=== PATIENT | female | born 1990 | race Caucasian/White ===

== ENCOUNTER 2017-04-11 19:48 | Emergency (ER) | payer BC ==
[2017-04-11] MEDS: CEPHALEXIN 500 MG CAP PO (22:30)
[2017-04-11] MEDS: traMADol 50 MG TAB PO (22:30)
== END 2017-04-11 22:37 | disposition home or self-care (01) ==
LOC: M ED 19:48
DX: N76.4 Abscess of vulva (principal); F43.10 Post-traumatic stress disorder, unspecified; F17.210 Nicotine dependence, cigarettes, uncomplicated; Z79.899 Other long term (current) drug therapy; Z88.8 Allergy status to other drugs, medicaments and biological substances; Z91.040 Latex allergy status; Z98.0 Intestinal bypass and anastomosis status; Z87.448 Personal history of other diseases of urinary system
CPT/HCPCS: 99282

== ENCOUNTER 2017-04-14 14:39 | Emergency (ER) | payer BC ==
[2017-04-14] MEDS: ONDANSETRON 4MG/2ML VIAL (J2405) IV (15:25)
[2017-04-14] MEDS: MORPHINE 4 MG/ML 1ML SYRINGE IV ×2 (15:25→17:18)
[2017-04-14] MEDS: VANCOMYCIN HCL 1,000 MG, VIAL MATE ADAPTER 1 EACH in D5W 250 ML IV (16:11)
== END 2017-04-14 17:35 | disposition home or self-care (01) ==
LOC: M ED 14:39
DX: N76.2 Acute vulvitis (principal); F43.10 Post-traumatic stress disorder, unspecified; Z98.84 Bariatric surgery status; Z88.8 Allergy status to other drugs, medicaments and biological substances; Z91.040 Latex allergy status; Z79.2 Long term (current) use of antibiotics; Z79.899 Other long term (current) drug therapy
CPT/HCPCS: J3370

== ENCOUNTER 2017-04-22 18:43 | Emergency (ER) | payer BC | END 2017-04-22 20:10 | disposition left against medical advice (07) | LOC: M ED 18:43 | DX: Z53.29 Procedure and treatment not carried out because of patient's decision for other reasons (principal) ==

== ENCOUNTER 2017-04-23 00:40 | Emergency (ER) | payer BC | END 2017-04-23 03:17 | disposition left against medical advice (07) | LOC: M ED 00:40 | DX: Z53.21 Procedure and treatment not carried out due to patient leaving prior to being seen by health care provider (principal) ==

== ENCOUNTER 2017-04-23 10:25 | Emergency (ER) | payer BC, OTHER ==
[2017-04-23 11:06] LABS: CONTROL LINE UCG INT CTR LINE PRESENT; URINE PREG TEST NEGATIVE (NEGATIVE)
[2017-04-23 11:12] LABS: KETONE, URINE AUTO RFX NEGATIVE (NEGATIVE); LEUKOCYTE ESTERASE UR AUTO RFX 2+ (NEGATIVE); MUCUS, URINE RFX SMALL (NEGATIVE); NITRITE, URINE AUTO RFX NEGATIVE (NEGATIVE); RBC, URINE AUTO RFX 2 /HPF (0-3); SPECIFIC GRAVITY UR AUTO RFX 1.019 (1.002-1.035); SQUAM EPITHELIAL CELL UR AURFX 25 /HPF (0-6); WBC, URINE AUTO RFX 4 /HPF (0-3)
[2017-04-23] MEDS: PANTOPRAZOLE 40MG INJ (PROTONIX) (C9113) IV (11:12)
[2017-04-23] MEDS: NS 1,000 ML IV (11:12)
[2017-04-23] MEDS: ONDANSETRON 4MG/2ML VIAL (J2405) IV (11:12)
[2017-04-23 11:19] LABS: BASO % 0.3 % (0.0-1.0); EOS # 0.1 10^3/uL (0.0-0.50); EOS % 2.4 % (0.0-3.0); HEMATOCRIT 35.2 % (36.0-47.0); IMMATURE GRANULOCYTE % 0.2 % (0-0); LYMPH # 2.6 10^3/uL (1.5-6.5); LYMPH % 44.1 % (24.0-44.0); MEAN CORPUSCULAR HEMOGLOBIN 27.2 pg (27.0-33.0); MEAN CORPUSCULAR HGB CONC 31.3 g/dl (32.0-36.5); MEAN CORPUSCULAR VOLUME 87.1 fl (80.0-96.0); MONO # 0.3 10^3/uL (0.0-0.8); MONO % 5.5 % (0.0-5.0); NEUTROPHILS # 2.8 10^3/uL (1.8-7.7); NEUTROPHILS % 47.5 % (36.0-66.0); PLATELET COUNT, AUTOMATED 306 10^3/uL (150-450); RED BLOOD COUNT 4.04 10^6/uL (4.00-5.40); RED CELL DISTRIBUTION WIDTH 14.3 % (11.5-14.5); WHITE BLOOD COUNT 5.8 10^3/uL (4.0-10.0)
[2017-04-23 11:40] LABS: ALBUMIN 3.5 GM/DL (3.2-5.2); ALBUMIN/GLOBULIN RATIO 0.92 (1.00-1.93); ALKALINE PHOSPHATASE 65 U/L (45-117); ALT/SGPT 22 U/L (12-78); ANION GAP 3 MEQ/L (8-16); AST/SGOT 26 U/L (7-37); BILIRUBIN,DIRECT < 0.1 MG/DL (0.0-0.2); BILIRUBIN,TOTAL 0.1 MG/DL (0.2-1.0); BLOOD UREA NITROGEN 11 MG/DL (7-18); CALCIUM LEVEL 8.9 MG/DL (8.5-10.1); CARBON DIOXIDE LEVEL 32 MEQ/L (21-32); CHLORIDE LEVEL 105 MEQ/L (98-107); CREATININE FOR GFR 0.76 MG/DL (0.55-1.02); GLOMERULAR FILTRATION RATE > 60.0 (>60); GLUCOSE, FASTING 73 MG/DL (70-105); LIPASE 178 U/L (73-393); POTASSIUM SERUM 4.3 MEQ/L (3.5-5.1); SODIUM LEVEL 140 MEQ/L (136-145); TOTAL PROTEIN 7.3 GM/DL (6.4-8.2)
[2017-04-23] MEDS: MORPHINE 4 MG/ML 1ML SYRINGE IV (12:34)
== END 2017-04-23 13:47 | disposition home or self-care (01) ==
LOC: M ED 10:25
DX: K92.2 Gastrointestinal hemorrhage, unspecified (principal); K82.4 Cholesterolosis of gallbladder; L03.115 Cellulitis of right lower limb; Z98.84 Bariatric surgery status; Z79.899 Other long term (current) drug therapy; Z79.2 Long term (current) use of antibiotics; Z88.8 Allergy status to other drugs, medicaments and biological substances; Z91.040 Latex allergy status; F17.210 Nicotine dependence, cigarettes, uncomplicated
CPT/HCPCS: C9113

== ENCOUNTER 2017-05-08 06:41 | Day surgery (SDC) | payer BC, OTHER ==
[2017-05-08] MEDS ORDERED: PROPOFOL 200 MG/20 ML VIAL As Ordered (07:10)
[2017-05-08] MEDS ORDERED: LIDOCAINE 2% INJ 100 MG/5 ML SDV (FOR ANES.) As Ordered (07:10)
[2017-05-08] MEDS: NS 1,000 ML IV ×2 (07:10→07:11)
[2017-05-08] MEDS ORDERED: fentaNYL 100 MCG/2 ML INJECTION (J3010) As Ordered (07:33)
== END 2017-05-08 08:21 | disposition home or self-care (01) ==
LOC: M OPP 06:41
DX: R10.13 Epigastric pain (principal); Z98.84 Bariatric surgery status; R19.5 Other fecal abnormalities; R19.7 Diarrhea, unspecified; R11.0 Nausea; Z98.0 Intestinal bypass and anastomosis status; K28.9 Gastrojejunal ulcer, unspecified as acute or chronic, without hemorrhage or perforation; D64.9 Anemia, unspecified; F41.9 Anxiety disorder, unspecified; F32.9 Major depressive disorder, single episode, unspecified; Z87.442 Personal history of urinary calculi; Z97.8 Presence of other specified devices; F17.210 Nicotine dependence, cigarettes, uncomplicated; Z88.8 Allergy status to other drugs, medicaments and biological substances; Z91.040 Latex allergy status; Z79.899 Other long term (current) drug therapy
CPT/HCPCS: 43235

== ENCOUNTER 2017-08-09 23:02 | Emergency (ER) | payer BC, OTHER ==
[2017-08-09] MEDS: GABAPENTIN 300 MG CAP PO (23:57)
[2017-08-09] MEDS: diazePAM 5 MG TAB PO (23:58)
[2017-08-10] MEDS: KETOROLAC 60 MG/2 ML VIAL (J1885) IM (00:51)
[2017-08-10] MEDS: NORCO 5/325MG TABLET (BULK FOR ED) PO (01:37)
== END 2017-08-10 01:38 | disposition home or self-care (01) ==
LOC: M ED 08-10 01:38
DX: G57.11 Meralgia paresthetica, right lower limb (principal); Z98.84 Bariatric surgery status; Z79.899 Other long term (current) drug therapy; Z88.8 Allergy status to other drugs, medicaments and biological substances; Z91.040 Latex allergy status; F17.210 Nicotine dependence, cigarettes, uncomplicated
CPT/HCPCS: J1885

== ENCOUNTER 2017-08-13 20:02 | Emergency (ER) | payer BC, OTHER ==
[2017-08-13] MEDS: methylPREDNISolone INJ 125 MG/2 ML VIAL (J2930) IM ×2 (22:27)
[2017-08-13] MEDS: KETOROLAC 60 MG/2 ML VIAL (J1885) IM ×2 (22:27)
[2017-08-13 22:51] LABS: ERYTHROCYTE SEDIMENTATION RATE 27 mm/hr (0-20)
[2017-08-13 22:55] LABS: C REACTIVE PROTEIN QUANTITATIV < 0.30 MG/DL (0.00-0.30)
[2017-08-13 23:11] LABS: CPK CREATINE PHOSPHOKINASE 2042 U/L (26-192)
[2017-08-13 23:51] LABS: ANION GAP 8 MEQ/L (8-16); BLOOD UREA NITROGEN 10 MG/DL (7-18); CALCIUM LEVEL 8.8 MG/DL (8.5-10.1); CARBON DIOXIDE LEVEL 24 MEQ/L (21-32); CHLORIDE LEVEL 109 MEQ/L (98-107); CREATININE FOR GFR 0.78 MG/DL (0.55-1.30); GLOMERULAR FILTRATION RATE > 60.0 (>60); GLUCOSE, FASTING 84 MG/DL (70-100); POTASSIUM SERUM 4.5 MEQ/L (3.5-5.1); SODIUM LEVEL 141 MEQ/L (136-145)
== END 2017-08-14 00:16 | disposition home or self-care (01) ==
LOC: M ED 08-14 00:16
DX: M62.82 Rhabdomyolysis (principal)
CPT/HCPCS: J1885

== ENCOUNTER 2017-08-19 12:22 | Emergency (ER) | payer BC, OTHER ==
[2017-08-19] MEDS: NS 1,000 ML IV ×2 (10:00)
[2017-08-19] MEDS: ONDANSETRON 4MG/2ML VIAL (J2405) IV ×2 (14:00)
[2017-08-19] MEDS: PANTOPRAZOLE 40MG INJ (PROTONIX) (C9113) IV ×2 (14:00)
[2017-08-19] MEDS: MORPHINE 4 MG/ML 1ML VIAL/SYRINGE (J2270) IV ×2 (14:28)
[2017-08-19 14:36] LABS: BASO % 0.2 % (0.0-1.0); EOS # 0.1 10^3/uL (0.0-0.50); EOS % 1.2 % (0.0-3.0); HEMOGLOBIN 9.8 g/dl (12.0-15.5); IMMATURE GRANULOCYTE % 0.2 % (0-3.0); LYMPH # 2.1 10^3/uL (1.5-6.5); LYMPH % 23.4 % (24.0-44.0); MEAN CORPUSCULAR HEMOGLOBIN 25.7 pg (27.0-33.0); MEAN CORPUSCULAR HGB CONC 30.6 g/dl (32.0-36.5); MEAN CORPUSCULAR VOLUME 83.8 fl (80.0-96.0); MONO # 0.5 10^3/uL (0.0-0.8); MONO % 5.6 % (0.0-5.0); NEUTROPHILS # 6.1 10^3/uL (1.8-7.7); NEUTROPHILS % 69.4 % (36.0-66.0); PLATELET COUNT, AUTOMATED 451 10^3/uL (150-450); RED BLOOD COUNT 3.82 10^6/uL (4.00-5.40); RED CELL DISTRIBUTION WIDTH 14.6 % (11.5-14.5); WHITE BLOOD COUNT 8.9 10^3/uL (4.0-10.0)
[2017-08-19 14:40] LABS: KETONE, URINE AUTO RFX NEGATIVE (NEGATIVE); MUCUS, URINE RFX SMALL (NEGATIVE); NITRITE, URINE AUTO RFX NEGATIVE (NEGATIVE); RBC, URINE AUTO RFX 1 /HPF (0-3); SPECIFIC GRAVITY UR AUTO RFX 1.027 (1.002-1.035); SQUAM EPITHELIAL CELL UR AURFX 4 /HPF (0-6); WBC, URINE AUTO RFX 8 /HPF (0-3)
[2017-08-19 14:41] LABS: LEUKOCYTE ESTERASE UR AUTO RFX TRACE (NEGATIVE)
[2017-08-19 14:47] LABS: INR 0.93; PROTHROMBIN TIME 12.5 SECONDS (12.4-14.5)
[2017-08-19 14:48] LABS: PARTIAL THROMBOPLASTIN TIME 27.4 SECONDS (26.8-37.9)
[2017-08-19] MEDS ORDERED: ISOVUE-370 76% 100ML VIAL (Q9967) As Ordered ×2 (14:56)
[2017-08-19 15:01] LABS: ALBUMIN 4.3 GM/DL (3.2-5.2); ALKALINE PHOSPHATASE 66 U/L (45-117); ALT/SGPT 19 U/L (12-78); ANION GAP 7 MEQ/L (8-16); AST/SGOT 15 U/L (7-37); BILIRUBIN,DIRECT 0.1 MG/DL (0.0-0.2); BILIRUBIN,TOTAL 0.3 MG/DL (0.2-1.0); BLOOD UREA NITROGEN 12 MG/DL (7-18); C REACTIVE PROTEIN QUANTITATIV < 0.30 MG/DL (0.00-0.30); CARBON DIOXIDE LEVEL 23 MEQ/L (21-32); CHLORIDE LEVEL 106 MEQ/L (98-107); CREATININE FOR GFR 0.87 MG/DL (0.55-1.30); GLOMERULAR FILTRATION RATE > 60.0 (>60); GLUCOSE, FASTING 80 MG/DL (70-100); LIPASE 274 U/L (73-393); POTASSIUM SERUM 3.9 MEQ/L (3.5-5.1); SODIUM LEVEL 136 MEQ/L (136-145); TOTAL PROTEIN 8.2 GM/DL (6.4-8.2)
[2017-08-19 15:20] LABS: ERYTHROCYTE SEDIMENTATION RATE 41 mm/hr (0-20)
== END 2017-08-19 17:08 | disposition left against medical advice (07) ==
LOC: M ED 12:22
DX: K92.2 Gastrointestinal hemorrhage, unspecified (principal); D64.9 Anemia, unspecified; F41.9 Anxiety disorder, unspecified; F33.9 Major depressive disorder, recurrent, unspecified; F43.10 Post-traumatic stress disorder, unspecified; M62.82 Rhabdomyolysis; K28.9 Gastrojejunal ulcer, unspecified as acute or chronic, without hemorrhage or perforation; Z98.84 Bariatric surgery status; Z79.899 Other long term (current) drug therapy; Z88.8 Allergy status to other drugs, medicaments and biological substances; Z91.040 Latex allergy status; F17.210 Nicotine dependence, cigarettes, uncomplicated
CPT/HCPCS: C9113

== ENCOUNTER 2017-08-20 19:28 | Inpatient (IN) | payer BC, OTHER ==
[2017-08-20 20:52] LABS: HEMATOCRIT 27.7 % (36.0-47.0); HEMOGLOBIN 8.6 g/dl (12.0-15.5); MEAN CORPUSCULAR HEMOGLOBIN 25.9 pg (27.0-33.0); MEAN CORPUSCULAR VOLUME 83.4 fl (80.0-96.0); PLATELET COUNT, AUTOMATED 413 10^3/uL (150-450); RED BLOOD COUNT 3.32 10^6/uL (4.00-5.40); RED CELL DISTRIBUTION WIDTH 14.6 % (11.5-14.5); WHITE BLOOD COUNT 7.3 10^3/uL (4.0-10.0)
[2017-08-20 21:16] LABS: ANION GAP 6 MEQ/L (8-16); BLOOD UREA NITROGEN 10 MG/DL (7-18); CALCIUM LEVEL 8.4 MG/DL (8.5-10.1); CARBON DIOXIDE LEVEL 27 MEQ/L (21-32); CHLORIDE LEVEL 107 MEQ/L (98-107); CREATININE FOR GFR 0.83 MG/DL (0.55-1.30); GLOMERULAR FILTRATION RATE > 60.0 (>60); GLUCOSE, FASTING 62 MG/DL (70-100); POTASSIUM SERUM 3.6 MEQ/L (3.5-5.1); SODIUM LEVEL 140 MEQ/L (136-145)
[2017-08-20] MEDS: PANTOPRAZOLE SODIUM 40 MG in D5W 50 ML IV ×2 (21:20→23:56)
[2017-08-20] MEDS: PANTOPRAZOLE 40MG INJ (PROTONIX) (C9113) IV (21:20)
[2017-08-20] MEDS: NS 1,000 ML IV ×2 (21:20→23:56)
[2017-08-20 21:23] LABS: INR 0.94; PROTHROMBIN TIME 12.7 SECONDS (12.4-14.5)
[2017-08-20 21:24] LABS: PARTIAL THROMBOPLASTIN TIME 27.6 SECONDS (26.8-37.9)
[2017-08-20] MEDS ORDERED: ACETAMINOPHEN TAB 650MG DOSE (2X325MG) PO (23:30)
[2017-08-20] MEDS ORDERED: ONDANSETRON 4MG/2ML VIAL (J2405) IV (23:30)
[2017-08-20] MEDS ORDERED: MORPHINE 4 MG/ML 1ML VIAL/SYRINGE (J2270) IV (23:45)
[2017-08-20] MEDS: ACETAMINOPHEN 500 MG TAB PO (23:57)
[2017-08-21] MEDS: D5W/0.45% SODIUM CHLORIDE 1,000 ML IV (00:15)
[2017-08-21 00:33] LABS: CONTROL LINE HCG INT CTR LINE PRESENT; HCG, SERUM QUALITATIVE NEGATIVE (NEGATIVE)
[2017-08-21 00:41] LABS: HEMATOCRIT 22.8 % (36.0-47.0); HEMOGLOBIN 7.2 g/dl (12.0-15.5)
[2017-08-21 00:43] LABS: FERRITIN 5 NG/ML (8-252); IRON (FE) 12 UG/DL (50-170); PERCENT SATURATION 2.4 % (13.2-45.0); TOTAL IRON BINDING CAPACITY 490 UG/DL (250-450)
[2017-08-21] MEDS: lamoTRIgine 100MG TAB PO ×2 (01:03→21:04)
[2017-08-21] MEDS: NS 1,000 ML IV (01:03)
[2017-08-21] MEDS: PANTOPRAZOLE SODIUM 40 MG in D5W 50 ML IV ×5 (01:06→22:45)
[2017-08-21 01:20] LABS: BEDSIDE GLUCOSE 94 MG/DL (70-105)
[2017-08-21 01:39] LABS: IMMEDIATE SPIN CROSSMATCH 1 1
[2017-08-21] MEDS: MORPHINE 4 MG/ML 1ML VIAL/SYRINGE (J2270) IV ×6 (02:02→22:45)
[2017-08-21 05:29] LABS: HEMATOCRIT 24.4 % (36.0-47.0); HEMOGLOBIN 7.7 g/dl (12.0-15.5); MEAN CORPUSCULAR HEMOGLOBIN 26.2 pg (27.0-33.0); MEAN CORPUSCULAR HGB CONC 31.6 g/dl (32.0-36.5); RED BLOOD COUNT 2.94 10^6/uL (4.00-5.40); RED CELL DISTRIBUTION WIDTH 14.2 % (11.5-14.5); WHITE BLOOD COUNT 6.4 10^3/uL (4.0-10.0)
[2017-08-21 05:31] LABS: PLATELET COUNT, AUTOMATED 290 10^3/uL (150-450)
[2017-08-21 05:39] LABS: ANION GAP 4 MEQ/L (8-16); BLOOD UREA NITROGEN 7 MG/DL (7-18); CALCIUM LEVEL 7.4 MG/DL (8.5-10.1); CARBON DIOXIDE LEVEL 24 MEQ/L (21-32); CHLORIDE LEVEL 114 MEQ/L (98-107); CREATININE FOR GFR 0.72 MG/DL (0.55-1.30); GLOMERULAR FILTRATION RATE > 60.0 (>60); GLUCOSE, FASTING 86 MG/DL (70-100); POTASSIUM SERUM 3.4 MEQ/L (3.5-5.1); SODIUM LEVEL 142 MEQ/L (136-145)
[2017-08-21] MEDS: POTASSIUM CHLORIDE 10 MEQ SR TABLET PO (06:18)
[2017-08-21 08:57] LABS: FOLATE 5.7 NG/ML (>5.4); VITAMIN B12 LEVEL 592 PG/ML (247-911)
[2017-08-21] MEDS: DULoxetine 30 MG CAP (CYMBALTA) PO (09:55)
[2017-08-21] MEDS: NICOTINE 7 MG/24 HR TRANSDERMAL TD (09:55)
[2017-08-21] MEDS: KCL 20MEQ IN D5/0.45NS 1000ML 1,000 ML IV ×2 (11:48→22:46)
[2017-08-21 12:00] LABS: HEMATOCRIT 25.2 % (36.0-47.0)
[2017-08-21] MEDS ORDERED: PROPOFOL 200 MG/20 ML VIAL As Ordered (14:37)
[2017-08-21] MEDS: MOM 30ML SUSPENSION UDC PO (16:34)
[2017-08-21] MEDS: MAGNESIUM CITRATE 300 ML BTL PO (16:35)
[2017-08-21 18:07] LABS: HEMATOCRIT 27.1 % (36.0-47.0); HEMOGLOBIN 8.7 g/dl (12.0-15.5)
[2017-08-22] MEDS: MORPHINE 4 MG/ML 1ML VIAL/SYRINGE (J2270) IV ×3 (02:50→22:18)
[2017-08-22] MEDS: PANTOPRAZOLE SODIUM 40 MG in D5W 50 ML IV ×4 (04:55→22:22)
[2017-08-22 05:08] LABS: HEMATOCRIT 26.7 % (36.0-47.0); HEMOGLOBIN 8.4 g/dl (12.0-15.5); MEAN CORPUSCULAR HEMOGLOBIN 26.1 pg (27.0-33.0); MEAN CORPUSCULAR HGB CONC 31.5 g/dl (32.0-36.5); MEAN CORPUSCULAR VOLUME 82.9 fl (80.0-96.0); PLATELET COUNT, AUTOMATED 345 10^3/uL (150-450); RED BLOOD COUNT 3.22 10^6/uL (4.00-5.40); RED CELL DISTRIBUTION WIDTH 14.6 % (11.5-14.5)
[2017-08-22 05:24] LABS: ANION GAP 4 MEQ/L (8-16); BLOOD UREA NITROGEN 3 MG/DL (7-18); CARBON DIOXIDE LEVEL 26 MEQ/L (21-32); CHLORIDE LEVEL 112 MEQ/L (98-107); CREATININE FOR GFR 0.71 MG/DL (0.55-1.30); GLOMERULAR FILTRATION RATE > 60.0 (>60); GLUCOSE, FASTING 91 MG/DL (70-100); POTASSIUM SERUM 3.8 MEQ/L (3.5-5.1); SODIUM LEVEL 142 MEQ/L (136-145)
[2017-08-22 05:25] LABS: MAGNESIUM LEVEL 2.9 MG/DL (1.8-2.4)
[2017-08-22] MEDS: MAGNESIUM CITRATE 300 ML BTL PO (09:02)
[2017-08-22] MEDS: NICOTINE 7 MG/24 HR TRANSDERMAL TD (09:02)
[2017-08-22] MEDS: DULoxetine 30 MG CAP (CYMBALTA) PO (09:02)
[2017-08-22] MEDS: KCL 20MEQ IN D5/0.45NS 1000ML 1,000 ML IV ×2 (09:03→18:56)
[2017-08-22] MEDS ORDERED: LIDOCAINE 2% INJ 100 MG/5 ML SDV (FOR ANES.) As Ordered (13:19)
[2017-08-22] MEDS ORDERED: PROPOFOL 200 MG/20 ML VIAL As Ordered ×2 (13:19→13:34)
[2017-08-22 16:33] LABS: HEMOGLOBIN 8.7 g/dl (12.0-15.5)
[2017-08-22] MEDS: NS 500 ML IV (17:28)
[2017-08-22] MEDS: NS 1,000 ML IV (21:25)
[2017-08-22] MEDS: lamoTRIgine 100MG TAB PO (21:25)
[2017-08-23] MEDS: PANTOPRAZOLE SODIUM 40 MG in D5W 50 ML IV ×2 (01:30→08:01)
[2017-08-23 05:54] LABS: HEMATOCRIT 25.8 % (36.0-47.0); MEAN CORPUSCULAR HEMOGLOBIN 26.2 pg (27.0-33.0); MEAN CORPUSCULAR VOLUME 84.6 fl (80.0-96.0); PLATELET COUNT, AUTOMATED 353 10^3/uL (150-450); RED BLOOD COUNT 3.05 10^6/uL (4.00-5.40); RED CELL DISTRIBUTION WIDTH 14.6 % (11.5-14.5); WHITE BLOOD COUNT 5.7 10^3/uL (4.0-10.0)
[2017-08-23 06:12] LABS: ANION GAP 7 MEQ/L (8-16); BLOOD UREA NITROGEN 6 MG/DL (7-18); CALCIUM LEVEL 7.5 MG/DL (8.5-10.1); CARBON DIOXIDE LEVEL 22 MEQ/L (21-32); CHLORIDE LEVEL 113 MEQ/L (98-107); CREATININE FOR GFR 0.75 MG/DL (0.55-1.30); GLOMERULAR FILTRATION RATE > 60.0 (>60); GLUCOSE, FASTING 76 MG/DL (70-100); MAGNESIUM LEVEL 2.5 MG/DL (1.8-2.4); POTASSIUM SERUM 3.6 MEQ/L (3.5-5.1); SODIUM LEVEL 142 MEQ/L (136-145)
[2017-08-23] MEDS: DULoxetine 30 MG CAP (CYMBALTA) PO (08:01)
[2017-08-23] MEDS: NICOTINE 7 MG/24 HR TRANSDERMAL TD (08:01)
[2017-08-23] MEDS: NS 1,000 ML IV (08:01)
[2017-08-23 12:09] LABS: IMMEDIATE SPIN CROSSMATCH 1 1
[2017-08-23 14:25] LABS: HEMATOCRIT 31.1 % (36.0-47.0); HEMOGLOBIN 9.7 g/dl (12.0-15.5)
== END 2017-08-23 15:39 | disposition home or self-care (01) | DRG 253 ==
LOC: M ED 19:28 → M ED INP 22:01 → M PCU 23:31
PROC: 0DJ08ZZ Inspection of Upper Intestinal Tract, Via Natural or Artificial Opening Endoscopic (ICD-10-PCS; principal; 2017-08-21 14:44)
PROC: 0DJD8ZZ Inspection of Lower Intestinal Tract, Via Natural or Artificial Opening Endoscopic (ICD-10-PCS; 2017-08-21 14:44)
PROC: 30233N1 Transfusion of Nonautologous Red Blood Cells into Peripheral Vein, Percutaneous Approach (ICD-10-PCS; 2017-08-21 14:44)
DX: K62.5 Hemorrhage of anus and rectum (principal); I95.9 Hypotension, unspecified; E87.6 Hypokalemia; F41.8 Other specified anxiety disorders; F32.9 Major depressive disorder, single episode, unspecified; Z79.899 Other long term (current) drug therapy; Z88.6 Allergy status to analgesic agent; Z91.040 Latex allergy status; F17.200 Nicotine dependence, unspecified, uncomplicated; Z83.3 Family history of diabetes mellitus; K25.9 Gastric ulcer, unspecified as acute or chronic, without hemorrhage or perforation; D62 Acute posthemorrhagic anemia

== ENCOUNTER 2017-09-13 09:50 | Emergency (ER) | payer BC, OTHER ==
[2017-09-13] MEDS: diphenhydrAMINE INJ 50MG/ML VIAL (J1200) IV (10:35)
[2017-09-13] MEDS: METOCLOPRAMIDE INJ 10MG/2ML VIAL (J2765) IV (10:35)
[2017-09-13] MEDS: NS 1,000 ML IV (10:35)
[2017-09-13] MEDS: ACETAMINOPHEN 325 MG TAB PO (10:36)
[2017-09-13 10:37] LABS: BASO % 0.7 % (0.0-1.0); EOS # 0.1 10^3/uL (0.0-0.50); EOS % 2.7 % (0.0-3.0); HEMATOCRIT 34.8 % (36.0-47.0); HEMOGLOBIN 10.6 g/dl (12.0-15.5); IMMATURE GRANULOCYTE % 0.2 % (0-3.0); LYMPH # 1.7 10^3/uL (1.5-6.5); LYMPH % 38.7 % (24.0-44.0); MEAN CORPUSCULAR HGB CONC 30.5 g/dl (32.0-36.5); MEAN CORPUSCULAR VOLUME 85.3 fl (80.0-96.0); MONO # 0.4 10^3/uL (0.0-0.8); MONO % 9.9 % (0.0-5.0); NEUTROPHILS # 2.1 10^3/uL (1.8-7.7); NEUTROPHILS % 47.8 % (36.0-66.0); PLATELET COUNT, AUTOMATED 321 10^3/uL (150-450); RED BLOOD COUNT 4.08 10^6/uL (4.00-5.40); RED CELL DISTRIBUTION WIDTH 14.5 % (11.5-14.5); WHITE BLOOD COUNT 4.4 10^3/uL (4.0-10.0)
[2017-09-13 11:00] LABS: ANION GAP 4 MEQ/L (8-16); BLOOD UREA NITROGEN 9 MG/DL (7-18); CARBON DIOXIDE LEVEL 30 MEQ/L (21-32); CHLORIDE LEVEL 106 MEQ/L (98-107); CREATININE FOR GFR 0.91 MG/DL (0.55-1.30); GLOMERULAR FILTRATION RATE > 60.0 (>60); GLUCOSE, FASTING 76 MG/DL (70-100); IRON (FE) 31 UG/DL (50-170); SODIUM LEVEL 140 MEQ/L (136-145); TOTAL IRON BINDING CAPACITY 513 UG/DL (250-450)
== END 2017-09-13 12:33 | disposition home or self-care (01) ==
LOC: M ED 09:50
DX: R51 Headache (principal); D50.9 Iron deficiency anemia, unspecified; R11.0 Nausea; K25.9 Gastric ulcer, unspecified as acute or chronic, without hemorrhage or perforation; Z91.040 Latex allergy status; Z88.8 Allergy status to other drugs, medicaments and biological substances; Z79.899 Other long term (current) drug therapy
CPT/HCPCS: J1200

== ENCOUNTER 2017-09-23 13:07 | Emergency (ER) | payer OTHER, BC | END 2017-09-23 14:32 | disposition left against medical advice (07) | LOC: M ED 13:07 | DX: Z53.21 Procedure and treatment not carried out due to patient leaving prior to being seen by health care provider (principal) ==